=== PATIENT | male | born 1980 | race Caucasian/White ===

== ENCOUNTER 2022-04-28 17:57 | Emergency (ER) | payer OTHER ==
[2022-04-28] MEDS ORDERED: MEDROL4 M2 PO (19:56)
[2022-04-28] MEDS ORDERED: ANAPROX DS550 MG PO (19:56)
[2022-04-28] MEDS ORDERED: METHOCARBAMOL750 MG PO (19:56)
== END 2022-04-28 20:56 | disposition home or self-care (01) ==
LOC: ER 18:02
DX: M54.12 Radiculopathy, cervical region (principal); R51.9 Headache, unspecified; M48.02 Spinal stenosis, cervical region; R03.0 Elevated blood-pressure reading, without diagnosis of hypertension; F17.200 Nicotine dependence, unspecified, uncomplicated
CPT/HCPCS: 70450; 72125; 99283

== ENCOUNTER 2022-09-03 12:57 | Emergency (ER) | payer OTHER ==
[~2022-09-03] VITALS: Ht 180.3 cm; Wt 95.3 kg
[~2022-09-03 12:57] MED LIST: ANAPROX DS550 MG PO; MEDROL4 M2 PO; METHOCARBAMOL750 MG PO
[2022-09-03 13:46] VITALS: O2SAT 100
[2022-09-03] MEDS ORDERED: NAPROSYN500 MG PO (14:01)
[2022-09-03] MEDS ORDERED: CYCLOBENZAPRINE5 MG PO (14:01)
[2022-09-03] MEDS ORDERED: DEXAMETHASONE SOD PHOS 10 MG/1 ML VIAL IM ONE (14:15)
== END 2022-09-03 14:24 | disposition home or self-care (01) ==
LOC: ER 13:06
DX: M25.511 Pain in right shoulder (principal); M79.18 Myalgia, other site; V43.52XA Car driver injured in collision with other type car in traffic accident, initial encounter; Y92.488 Other paved roadways as the place of occurrence of the external cause
CPT/HCPCS: 99282; J1100